=== PATIENT | male | born 1970 ===

== ENCOUNTER 2018-01-15 21:40 | Observation (INO) | payer SELFPAY ==
[2018-01-15 22:57] LABS: BASO # 0.1 K/uL (0.0-0.2); BASO % 0.9 % (0.0-2.0); EOS % 0.7 % (0.0-4.0); HEMOGLOBIN 15.1 g/dL (12.0-18.0); LYMPH # 1.3 K/uL (1.0-4.3); LYMPH % 21.4 % (20.0-40.0); MEAN CELL VOLUME 86.5 fL (80.0-94.0); MEAN CORPUSCULAR HEMOGLOBIN 30.3 pg (27.0-31.0); MEAN PLATELET VOLUME 6.1 fL (7.2-11.7); MONO # 0.3 K/uL (0.0-0.8); MONO % 5.3 % (0.0-10.0); NEUT # 4.4 K/uL (1.8-7.0); NEUT % 71.7 % (50.0-75.0); RBC 4.98 Mil/uL (4.40-5.90); RED CELL DISTRIBUTION WIDTH 14.6 % (11.5-14.5); WHITE BLOOD COUNT 6.2 K/uL (4.8-10.8)
[2018-01-15 23:04] LABS: URINE AMORPHOUS SEDIMENT RARE /ul (<OCC); URINE BILIRUBIN NEGATIVE (NEGATIVE); URINE BLOOD NEGATIVE (NEGATIVE); URINE CLARITY Hazy (Clear); URINE COLOR Straw (YELLOW); URINE GLUCOSE (UA) NORMAL (Normal); URINE LEUKOCYTE ESTERASE NEG Leu/uL (Negative); URINE PROTEIN NEGATIVE (NEGATIVE); URINE UROBILINOGEN NORMAL mg/dL (0.2-1.0)
[2018-01-15 23:09] LABS: ALB/GLOB RATIO 1.4 (1.0-2.1); ALBUMIN 4.6 g/dL (3.5-5.0); ALT/SGPT 30 U/L (21-72); AST/SGOT 28 U/L (17-59); BLOOD UREA NITROGEN 11 mg/dL (9-20); CALCIUM 9.4 mg/dl (8.6-10.4); GFR AFRICAN-AMERICAN > 60; GFR NON-AFRICAN AMERICAN > 60
--- NOTE | 2018-01-15 23:42 | C.PDOC ---
History Of Present Illness 47 yo male with htn and high cholesterol c/o intermittent cp with sob with exertion for the last week, that eases at rest. pt sts today he was outside waking and had cp, sob and felt lightheaded. pt also c/o intermittent left arm numbness and posterior headache, no nausea, vomiting or abodminal pain. no cp at this time. Time Seen by Provider: 01/15/18 22:01 Chief Complaint (Nursing): Headache History Per: Patient History/Exam Limitations: no limitations Onset/Duration Of Symptoms: Days (7) Current Symptoms Are (Timing): Still Present Associated Symptoms: denies: Photophobia, Blurred Vision Past Medical History Reviewed: Historical Data, Nursing Documentation, Vital Signs Vital Signs: Last Vital Signs Temp 98.6 F 01/15/18 21:52 Pulse 63 01/16/18 01:34 Resp 14 01/16/18 01:34 BP 127/83 01/16/18 01:34 Pulse Ox 99 01/16/18 04:39 - Medical History PMH: HTN, Hypercholesterolemia Surgical History: Appendectomy Family History: States: Unknown Family Hx - Social History Hx Tobacco Use: No Hx Alcohol Use: No Hx Substance Use: No Review Of Systems Constitutional: Negative for: Fever, Chills Cardiovascular: Positive for: Chest Pain, Light Headedness. Negative for: Palpitations Respiratory: Positive for: Shortness of Breath, SOB with Excertion. Negative for: Cough Gastrointestinal: Negative for: Nausea, Abdominal Pain Musculoskeletal: Negative for: Neck Pain Skin: Negative for: Rash Neurological: Positive for: Numbness (intermittent left arm), Headache. Negative for: Weakness, Altered Mental Status, Dizziness Physical Exam - Physical Exam Appears: Non-toxic, No Acute Distress Skin: Warm, Dry Head: Atraumatic, Normacephalic Eye(s): bilateral: Normal Inspection, PERRL, EOMI Nose: No Discharge Oral Mucosa: Moist Tongue: Normal Appearing Lips: Normal Appearing Neck: Normal ROM, No Midline Cervical Tenderness, No Paracervical Tenderness, Supple Chest: No Deformity, No Tenderness Cardiovascular: Rhythm Regular, No Murmur Respiratory: No Decreased Breath Sounds, No Rales, No Rhonchi, No Wheezing Gastrointestinal/Abdominal: Soft, No Tenderness, No Guarding, No Rebound Extremity: Normal ROM, No Pedal Edema, No Calf Tenderness Pulses: Left Dorsalis Pedis: Normal, Right Dorsalis Pedis: Normal Neurological/Psych: Oriented x3, Normal Speech, Normal Cognition, Normal Motor, Normal Sensation ED Course And Treatment - Laboratory Results Result Diagrams: 01/15/18 22:53 01/15/18 22:53 ECG: Interpreted By Me, Viewed By Me ECG Rhythm: Sinus Rhythm Interpretation Of ECG: nsr [address]-t changes O2 Sat by Pulse Oximetry: 99 (ON RA) Pulse Ox Interpretation: Normal - CT Scan/US CT head Other Rad Studies (CT/US): Read By Radiologist, Radiology Report Reviewed CT/US Interpretation: EXAM: CT Head Without Intravenous Contrast. CLINICAL HISTORY: 47 years old, male; Pain; Headache; Additional info: Intermittent left arm numbness and headache x. 1 we. TECHNIQUE: Axial computed tomography images of the head/brain without intravenous contrast. All CT scans at. this facility use at least one of these dose optimization techniques: automated exposure control; mA. and/or kV adjustment per patient size (includes targeted exams where dose is matched to clinical. indication); or iterative reconstruction. COMPARISON: No relevant prior studies available. FINDINGS: Brain: Left inferior basal ganglia hypodensity secondary to prominent perivascular space versus. chronic lacunar infarct. No hemorrhage. No significant white matter disease. Ventricles: Unremarkable. No ventriculomegaly. Bones/joints: Unremarkable. No acute fracture. Soft tissues : Unremarkable. Sinuses: Unremarkable as visualized. No acute sinusitis. Mastoid air cells: Unremarkable as visualized. No mastoid effusion. IMPRESSION : No acute findings. Thank you for allowing us to participate in the care of your patient. Dictated and Authenticated by: Swathi Fishman MD. 2017 11:40 PM Eastern Time ([place] & [place]) Medical Decision Making Medical Decision Making: pt with several risk factors for cad; discussed with Dr Alegre, pt to be placed on his service tele obs Disposition Discussed With .: Jose M Alegre Doctor Will See Patient In The: Hospital - Disposition Disposition: HOSPITALIZED Disposition Time: 00:29 Condition: GOOD - Clinical Impression Clinical Impression: Chest pain
--- NOTE | 2018-01-16 00:32 | CP.PCM.HP ---
<PetraDebra Anabell - Last Filed: 01/16/18 01:27> History of Present Illness - History of Present Illness History of Present Illness: CC: chest pain HPI: Patient is a 47 year old male with PMHx of HTN and HLD who comes in today for chest pain and left arm falling asleep. Patient is visiting from [facility] and is returning to [facility] on Tuesday. Patient explains that for the past week he has had multiple episodes of left sided mid axillary pain that last for a few minutes and resolves on their own. The pain is moderate. Patient says that he also notices his left arm sometimes falls asleep (at night or during the day) and the sensation resolves when he massages his arm. Patient also admits to headache in the back of the head that has happened a few times in the past week. Today patient was walking around all day in the sun and became lightheaded and slightly short of breath. Patient splashed cold water on his face and then went home. Patient felt anxious and decided to come to the ER. Patient says he does not do much exercise, but does do a lot of walking. Patient can walk very far with no problems. Of note patient is asking to be sent home with anxiety medication because he gets nervous on planes. Patient takes an herbal supplement sometimes in [facility] for anxiety (Valeriana). Currently patient has no symptoms. Patient denies any headache, chest pain, shortness of breath, abdominal pain, nausea, vomiting, constipation, or diarrhea. PMHx:HTN, HLD All: NKDA Surg: Appendectomy as a teenager Social: denies tobacco or drugs, used to drink socially but stopped 5 years ago , works at a [employer] Famhx: father: open heart surgery at 56, mom: DMII Home meds: Losartan 50mg po daily, Amlodipine 2.5mg po daily Present on Admission - Present on Admission Any Indicators Present on Admission: No History of DVT/PE: No History of Uncontrolled Diabetes: No Urinary Catheter: No Decubitus Ulcer Present: No Review of Systems - Constitutional Constitutional: absent: Fever, Weakness - EENT Eyes: absent: Blurred Vision - Cardiovascular Cardiovascular: Chest Pain, Dyspnea, Dyspnea on Exertion. absent: Palpitations - Respiratory Respiratory: absent: Cough, Wheezing - Gastrointestinal Gastrointestinal: absent: Abdominal Pain, Constipation, Diarrhea, Nausea, Vomiting - Genitourinary Genitourinary: absent: Change in Urinary Stream, Difficulty Urinating - Musculoskeletal Musculoskeletal: Numbness, Tingling. absent: Stiffness - Integumentary Integumentary: absent: Rash - Neurological Neurological: Paresthesias - Hematologic/Lymphatic Hematologic: absent: Easy Bleeding, Easy Bruising Past Patient History - Past Social History Smoking Status: Never Smoked - CARDIAC Hx Hypertension: Yes - PSYCHIATRIC Hx Substance Use: No - SURGICAL HISTORY Hx Appendectomy: Yes Meds Allergies/Adverse Reactions: Allergies Allergy/AdvReac Type Severity Reaction Status Date / Time No Known Allergies Allergy Unverified 01/15/18 21:55 Physical Exam - Constitutional Appears: Non-toxic, No Acute Distress - Head Exam Head Exam: ATRAUMATIC, NORMAL INSPECTION, NORMOCEPHALIC - Eye Exam Eye Exam: EOMI, Normal appearance - ENT Exam ENT Exam: Mucous Membranes Moist - Respiratory Exam Respiratory Exam: Clear to Auscultation Bilateral, NORMAL BREATHING PATTERN. absent: Rales, Rhonchi, Wheezes, Respiratory Distress - Cardiovascular Exam Cardiovascular Exam: REGULAR RHYTHM, RRR, +S1, +S2 Additional comments: mild left sided rib tenderness - GI/Abdominal Exam GI & Abdominal Exam: Normal Bowel Sounds, Soft. absent: Tenderness - Extremities Exam Extremities exam: Positive for: normal inspection. Negative for: pedal edema, tenderness - Back Exam Back exam: NORMAL INSPECTION - Neurological Exam Neurological exam: Alert, Oriented x3 - Psychiatric Exam Psychiatric exam: Normal Affect, Normal Mood - Skin Skin Exam: Intact, Normal Color, Warm Results - Vital Signs Recent Vital Signs: Last Vital Signs Temp 98.6 F 01/15/18 21:52 Pulse 86 01/15/18 21:52 Resp 14 01/15/18 21:52 BP 130/80 01/15/18 21:52 Pulse Ox 99 01/16/18 00:28 - Labs Result Diagrams: 01/15/18 22:53 01/15/18 22:53 Labs: Laboratory Results - last 24 hr 01/15/18 01/15/18 01/15/18 22:50 22:53 22:53 WBC 6.2 RBC 4.98 Hgb 15.1 Hct 43.1 MCV 86.5 MCH 30.3 MCHC 35.0 RDW 14.6 H Plt Count 294 MPV 6.1 L Neut % (Auto) 71.7 Lymph % (Auto) 21.4 [place] % (Auto) 5.3 Eos % (Auto) 0.7 Baso % (Auto) 0.9 Neut # (Auto) 4.4 Lymph # (Auto) 1.3 [place] # (Auto) 0.3 Eos # (Auto) 0.0 Baso # (Auto) 0.1 Sodium 142 Potassium 3.5 L Chloride 103 Carbon Dioxide 25 Anion Gap 17 BUN 11 Creatinine 1.0 Est GFR ( Amer) > 60 Est GFR (Non-Af Amer) > 60 Random Glucose 130 H Calcium 9.4 Total Bilirubin 0.7 AST 28 ALT 30 Alkaline Phosphatase 60 Troponin I < 0.0120 Total Protein 8.0 Albumin 4.6 Globulin 3.4 Albumin/Globulin Ratio 1.4 Urine Color Straw Urine Clarity Hazy Urine pH 8.0 Ur Specific Watts 1.006 Urine Protein Negative Urine Glucose (UA) Normal Urine Ketones Negative Urine Blood Negative Urine Nitrate Negative Urine Bilirubin Negative Urine Urobilinogen Normal Ur Leukocyte Esterase Neg Urine WBC (Auto) 1 Urine RBC (Auto) < 1 Amorphous Sediment Rare H Assessment & Plan - Assessment and Plan (Free Text) Assessment: Chest Pain r/o ACS admitted to [facility] I (-) repeat [place] x 2 EKG: NSR at [address] head: Left inferior basal ganglia hypodensity secondary to prominent perivascular space versus chronic lacunar infarct. No hemorrhage. No significant white matter disease. Ventricles: Unremarkable. No ventriculomegaly. Bones/joints: Unremarkable. No acute fracture. Soft tissues : Unremarkable. Sinuses: Unremarkable as visualized. No acute sinusitis. Mastoid air cells: Unremarkable as visualized. No mastoid effusion. IMPRESSION : No acute findings. HTN stable continue home meds: Losartan 50mg po daily, Amlodipine 2.5mg po daily Hypokalemia K+ 3.5, 20meq KDUR given Prophylaxis SCDs pepcid 20mg po daily Tylenol 650mg po q6h prn <Jose M Alegre P - Last Filed: 01/16/18 07:04> Results - Vital Signs Recent Vital Signs: Last Vital Signs Temp 98.1 F 01/16/18 06:58 Pulse 60 01/16/18 06:58 Resp 18 01/16/18 06:58 BP 108/69 01/16/18 06:58 Pulse Ox 100 01/16/18 06:58 - Labs Result Diagrams: 01/16/18 05:16 01/16/18 05:16 Labs: Laboratory Results - last 24 hr 01/15/18 01/15/18 01/15/18 22:50 22:53 22:53 WBC 6.2 RBC 4.98 Hgb 15.1 Hct 43.1 MCV 86.5 MCH 30.3 MCHC 35.0 RDW 14.6 H Plt Count 294 MPV 6.1 L Neut % (Auto) 71.7 Lymph % (Auto) 21.4 [place] % (Auto) 5.3 Eos % (Auto) 0.7 Baso % (Auto) 0.9 Neut # (Auto) 4.4 Lymph # (Auto) 1.3 [place] # (Auto) 0.3 Eos # (Auto) 0.0 Baso # (Auto) 0.1 Sodium 142 Potassium 3.5 L Chloride 103 Carbon Dioxide 25 Anion Gap 17 BUN 11 Creatinine 1.0 Est GFR ( Amer) > 60 Est GFR (Non-Af Amer) > 60 Random Glucose 130 H Calcium 9.4 Phosphorus Magnesium Total Bilirubin 0.7 AST 28 ALT 30 Alkaline Phosphatase 60 Total Creatine Kinase CK-MB (Mass) Troponin I < 0.0120 Total Protein 8.0 Albumin 4.6 Globulin 3.4 Albumin/Globulin Ratio 1.4 Urine Color Straw Urine Clarity Hazy Urine pH 8.0 Ur Specific Watts 1.006 Urine Protein Negative Urine Glucose (UA) Normal Urine Ketones Negative Urine Blood Negative Urine Nitrate Negative Urine Bilirubin Negative Urine Urobilinogen Normal Ur Leukocyte Esterase Neg Urine WBC (Auto) 1 Urine RBC (Auto) < 1 Amorphous Sediment Rare H 01/16/18 01/16/18 01/16/18 05:16 05:16 05:16 WBC 7.3 RBC 5.05 Hgb 15.1 Hct 43.8 MCV 86.7 MCH 29.9 MCHC 34.5 RDW 14.2 Plt Count 269 MPV 6.0 L Neut % (Auto) 56.9 Lymph % (Auto) 34.6 [place] % (Auto) 7.1 Eos % (Auto) 0.9 Baso % (Auto) 0.5 Neut # (Auto) 4.2 Lymph # (Auto) 2.5 [place] # (Auto) 0.5 Eos # (Auto) 0.1 Baso # (Auto) 0.0 Sodium 142 Potassium 4.0 Chloride 106 Carbon Dioxide 24 Anion Gap 16 BUN 10 Creatinine 1.0 Est GFR ( Amer) > 60 Est GFR (Non-Af Amer) > 60 Random Glucose 95 Calcium 8.8 Phosphorus 4.9 H Magnesium 2.4 H Total Bilirubin 0.8 AST 22 ALT 31 Alkaline Phosphatase 60 Total Creatine Kinase 178 H CK-MB (Mass) 0.34 Troponin I < 0.0120 Total Protein 7.2 Albumin 4.3 Globulin 2.9 Albumin/Globulin Ratio 1.5 Urine Color Urine Clarity Urine pH Ur Specific Watts Urine Protein Urine Glucose (UA) Urine Ketones Urine Blood Urine Nitrate Urine Bilirubin Urine Urobilinogen Ur Leukocyte Esterase Urine WBC (Auto) Urine RBC (Auto) Amorphous Sediment Attending/Attestation - Attestation I have personally seen and examined this patient.: Yes I have fully participated in the care of the patient.: Yes I have reviewed all pertinent clinical information: Yes Notes (Text): Assessment Atypical vague symptoms of 1 min chest pain, intermittent left arm numbness, and episode of weakness yesterday, all symptoms not related with each other, independent in chronology Patient seeking also some anti anxiety medication for his coming flight travel in 2 days Plan Serial enzymes, if negative dc planning.
[2018-01-16] MEDS ORDERED: Potassium Chloride 20 mEq ER Tab PO ONE ×2 (01:35→01:42)
[2018-01-16 05:19] LABS: BASO % 0.5 % (0.0-2.0); EOS # 0.1 K/uL (0.0-0.7); EOS % 0.9 % (0.0-4.0); HEMOGLOBIN 15.1 g/dL (12.0-18.0); LYMPH # 2.5 K/uL (1.0-4.3); LYMPH % 34.6 % (20.0-40.0); MEAN CELL VOLUME 86.7 fL (80.0-94.0); MEAN CORPUSCULAR HEMOGLOBIN 29.9 pg (27.0-31.0); MEAN CORPUSCULAR HGB CONC 34.5 g/dL (33.0-37.0); MONO # 0.5 K/uL (0.0-0.8); MONO % 7.1 % (0.0-10.0); NEUT # 4.2 K/uL (1.8-7.0); NEUT % 56.9 % (50.0-75.0); NRBC % 0.2 % (0.0-2.0); RBC 5.05 Mil/uL (4.40-5.90); RED CELL DISTRIBUTION WIDTH 14.2 % (11.5-14.5); WHITE BLOOD COUNT 7.3 K/uL (4.8-10.8)
[2018-01-16 05:52] LABS: CK-MB 0.34 ng/mL (0.0-3.38)
[2018-01-16 06:38] LABS: ALB/GLOB RATIO 1.5 (1.0-2.1); ALBUMIN 4.3 g/dL (3.5-5.0); ALT/SGPT 31 U/L (21-72); AST/SGOT 22 U/L (17-59); BLOOD UREA NITROGEN 10 mg/dL (9-20); CALCIUM 8.8 mg/dl (8.6-10.4); GFR AFRICAN-AMERICAN > 60; GFR NON-AFRICAN AMERICAN > 60
--- NOTE | 2018-01-16 08:48 | CT ---
Date of service: 01/15/2018 PROCEDURE: CT HEAD WITHOUT CONTRAST. HISTORY: intermittent left arm numbness and headache COMPARISON: None available. TECHNIQUE: Axial computed tomography images were obtained through the head/brain without intravenous contrast. Radiation dose: Total exam DLP = 819 mGy-cm. This CT exam was performed using one or more of the following dose reduction techniques: Automated exposure control, adjustment of the mA and/or kV according to patient size, and/or use of iterative reconstruction technique. FINDINGS: HEMORRHAGE: No intracranial hemorrhage. BRAIN: Left inferior basal ganglia hypodensity secondary to prominent perivascular space versus chronic lacunar infarct.Scattered focal lucencies in the subcortical and periventricular white matter suggestive for chronic microvascular ischemic change. VENTRICLES: Unremarkable. No hydrocephalus. CALVARIUM: Unremarkable. PARANASAL SINUSES: Unremarkable as visualized. No significant inflammatory changes. MASTOID AIR CELLS: Unremarkable as visualized. No inflammatory changes. OTHER FINDINGS: None. IMPRESSION: Left inferior basal ganglia hypodensity secondary to prominent perivascular space versus chronic lacunar infarct. Chronic microvascular ischemic changes. If focal neurologic deficit persists, consider correlation with MRI. These findings were preliminarily reported at 11:40 p.m. on 01/15/[address] Swathi Fishman from [facility].
--- NOTE | 2018-01-16 11:26 | RAD ---
Date of service: 01/15/2018 HISTORY: Chest pain. COMPARISON: No prior. TECHNIQUE: Chest PA and lateral FINDINGS: LUNGS: No active pulmonary disease. PLEURA: No significant pleural effusion identified. No pneumothorax apparent. CARDIOVASCULAR: No radiographic findings to suggest acute or significant cardiovascular disease. OSSEOUS STRUCTURES: No significant abnormalities. VISUALIZED UPPER ABDOMEN: Normal. OTHER FINDINGS: None. IMPRESSION: No active disease.
[2018-01-16 11:46] VITALS: BP 133/85; RESP 18; TEMP 97.7; O2SAT 98
[2018-01-16 12:19] LABS: CK-MB 0.28 ng/mL (0.0-3.38)
--- NOTE | 2018-01-16 13:19 | CARD ---
APPROVED REPORT Date of service: 01/16/2018 EKG Measurement Heart [id number] <Conclusion> Normal sinus rhythm Nonspecific T wave abnormality Abnormal ECG
[2018-01-16 14:06] VITALS: PULSE 98
--- NOTE | 2018-01-16 15:21 | CP.PCM.DIS ---
<Adrien Medelophe - Last Filed: 01/16/18 15:17> Provider - Provider Date of Admission: 01/16/18 00:30 Attending physician: Lacey Ernst DO Time Spent in preparation of Discharge (in minutes): 45 Diagnosis - Discharge Diagnosis (1) Anxiety Status: Chronic (2) Chest pain Status: Resolved Hospital Course - Lab Results Lab Results: Most Recent Lab Values WBC 7.3 K/uL (4.8-10.8) 01/16/18 05:16 RBC 5.05 Mil/uL (4.40-5.90) 01/16/18 05:16 Hgb 15.1 g/dL (12.0-18.0) 01/16/18 05:16 Hct 43.8 % (35.0-51.0) 01/16/18 05:16 MCV 86.7 fL (80.0-94.0) 01/16/18 05:16 MCH 29.9 pg (27.0-31.0) 01/16/18 05:16 MCHC 34.5 g/dL (33.0-37.0) 01/16/18 05:16 RDW 14.2 % (11.5-14.5) 01/16/18 05:16 Plt Count 269 K/uL (130-400) 01/16/18 05:16 MPV 6.0 fL (7.2-11.7) L 01/16/18 05:16 Neut % (Auto) 56.9 % (50.0-75.0) 01/16/18 05:16 Lymph % (Auto) 34.6 % (20.0-40.0) 01/16/18 05:16 [place] % (Auto) 7.1 % (0.0-10.0) 01/16/18 05:16 Eos % (Auto) 0.9 % (0.0-4.0) 01/16/18 05:16 Baso % (Auto) 0.5 % (0.0-2.0) 01/16/18 05:16 Neut # (Auto) 4.2 K/uL (1.8-7.0) 01/16/18 05:16 Lymph # (Auto) 2.5 K/uL (1.0-4.3) 01/16/18 05:16 [place] # (Auto) 0.5 K/uL (0.0-0.8) 01/16/18 05:16 Eos # (Auto) 0.1 K/uL (0.0-0.7) 01/16/18 05:16 Baso # (Auto) 0.0 K/uL (0.0-0.2) 01/16/18 05:16 Sodium 142 mmol/L (132-148) 01/16/18 05:16 Potassium 4.0 mmol/L (3.6-5.2) 01/16/18 05:16 Chloride 106 mmol/L (98-107) 01/16/18 05:16 Carbon Dioxide 24 mmol/L (22-30) 01/16/18 05:16 Anion Gap 16 (10-20) 01/16/18 05:16 BUN 10 mg/dL (9-20) 01/16/18 05:16 Creatinine 1.0 mg/dL (0.8-1.5) 01/16/18 05:16 Est GFR ( Amer) > 60 01/16/18 05:16 Est GFR (Non-Af Amer) > 60 01/16/18 05:16 Random Glucose 95 mg/dL (75-110) 01/16/18 05:16 Calcium 8.8 mg/dl (8.6-10.4) 01/16/18 05:16 Phosphorus 4.9 mg/dL (2.5-4.5) H 01/16/18 05:16 Magnesium 2.4 mg/dL (1.6-2.3) H 01/16/18 05:16 Total Bilirubin 0.8 mg/dL (0.2-1.3) 01/16/18 05:16 AST 22 U/L (17-59) 01/16/18 05:16 ALT 31 U/L (21-72) 01/16/18 05:16 Alkaline Phosphatase 60 U/L (38-126) 01/16/18 05:16 Total Creatine Kinase 177 U/L (55-170) H 01/16/18 11:29 CK-MB (Mass) 0.28 ng/mL (0.0-3.38) 01/16/18 11:29 Troponin I < 0.0120 ng/mL (0.00-0.120) 01/16/18 11:29 Total Protein 7.2 g/dL (6.3-8.3) 01/16/18 05:16 Albumin 4.3 g/dL (3.5-5.0) 01/16/18 05:16 Globulin 2.9 gm/dL (2.2-3.9) 01/16/18 05:16 Albumin/Globulin Ratio 1.5 (1.0-2.1) 01/16/18 05:16 Urine Color Straw (YELLOW) 01/15/18 22:50 Urine Clarity Hazy (Clear) 01/15/18 22:50 Urine pH 8.0 (5.0-8.0) 01/15/18 22:50 Ur Specific [place] 1.006 (1.003-1.030) 01/15/18 22:50 Urine Protein Negative mg/dL (NEGATIVE) 01/15/18 22:50 Urine Glucose (UA) Normal mg/dL (Normal) 01/15/18 22:50 Urine Ketones Negative mg/dL (NEGATIVE) 01/15/18 22:50 Urine Blood Negative (NEGATIVE) 01/15/18 22:50 Urine Nitrate Negative (NEGATIVE) 01/15/18 22:50 Urine Bilirubin Negative (NEGATIVE) 01/15/18 22:50 Urine Urobilinogen Normal mg/dL (0.2-1.0) 01/15/18 22:50 Ur Leukocyte Esterase Neg [place]/uL (Negative) 01/15/18 22:50 Urine WBC (Auto) 1 /hpf (0-5) 01/15/18 22:50 Urine RBC (Auto) < 1 /hpf (0-3) 01/15/18 22:50 Amorphous Sediment Rare /ul (<OCC) H 01/15/18 22:50 - Hospital Course Hospital Course: HPI Patient is a 47 year old male with PMHx of HTN and HLD who comes in today for chest pain and left arm falling asleep. Patient is visiting from [facility] and is returning to [facility] on Tuesday. Patient explains that for the past week he has had multiple episodes of left sided mid axillary pain that last for a few minutes and resolves on their own. The pain is moderate. Patient says that he also notices his left arm sometimes falls asleep (at night or during the day) and the sensation resolves when he massages his arm. Patient also admits to headache in the back of the head that has happened a few times in the past week. Today patient was walking around all day in the sun and became lightheaded and slightly short of breath. Patient splashed cold water on his face and then went home. Patient felt anxious and decided to come to the ER. Patient says he does not do much exercise, but does do a lot of walking. Patient can walk very far with no problems. Of note patient is asking to be sent home with anxiety medication because he gets nervous on planes. Patient takes an herbal supplement sometimes in [facility] for anxiety (Valeriana). Currently patient has no symptoms. Patient denies any headache, chest pain, shortness of breath, abdominal pain, nausea, vomiting, constipation, or diarrhea. PMHx:HTN, HLD All: NKDA Surg: Appendectomy as a teenager Social: denies tobacco or drugs, used to drink socially but stopped 5 years ago , works at a [employer] Famhx: father: open heart surgery at 56, mom: DMII Home meds: Losartan 50mg po daily, Amlodipine 2.5mg po daily Hospital course: Pt admitted for chest pain and Left arm paresthesia. EKG and troponins negative for pathology x3. CXR neg. Psychiatry consulted. Pt was given 0.5mg of Xanax as trial anxiolytic. Pt reports full resolution of anxiety. Pt discharged with 3 pills PRN. Diagnostics: CXR: neg EKG x3 NSR Head CT: L basal ganglia lacunar infarct possible instructions: 1. Xanax 0.5mg take one pill as needed for anxiety symptoms 2. F/u with PMD for rosacea treatment Discharge Exam - Head Exam Head Exam: ATRAUMATIC, NORMAL INSPECTION, NORMOCEPHALIC - Eye Exam Eye Exam: EOMI, Normal appearance. absent: Nystagmus Pupil Exam: NORMAL ACCOMODATION - ENT Exam ENT Exam: Mucous Membranes Moist - Respiratory Exam Respiratory Exam: Clear to PA & Lateral, NORMAL BREATHING PATTERN - Cardiovascular Exam Cardiovascular Exam: RRR, +S1, +S2. absent: Systolic Murmur - Extremities Exam Extremities exam: full ROM, normal inspection - Back Exam Back exam: NORMAL INSPECTION - Neurological Exam Neurological exam: Alert, CN II-XII Intact, Normal Gait, Oriented x3, Reflexes Normal Additional comments: rhomberg neg heel woody drag normal bilaterally neg blink reflex tap neg arguelles's - Psychiatric Exam Psychiatric exam: Normal Affect, Normal Mood - Skin Skin Exam: Dry, Intact, Normal Color, Warm Discharge Plan - Follow Up Plan Condition: GOOD Disposition: HOME/ ROUTINE Instructions: Heart Healthy Diet, Chest Pain (DC), Anxiety (DC) Additional Instructions: Pt instructed to take Xanax 0.5mg for anxiety one pill as needed once. <Lacey Ernst V - Last Filed: 01/17/18 01:33> Provider - Provider Date of Admission: 01/16/18 00:30 Attending physician: Lacey Ernst, [facility] Course - Lab Results Lab Results: Most Recent Lab Values WBC 7.3 K/uL (4.8-10.8) 01/16/18 05:16 RBC 5.05 Mil/uL (4.40-5.90) 01/16/18 05:16 Hgb 15.1 g/dL (12.0-18.0) 01/16/18 05:16 Hct 43.8 % (35.0-51.0) 01/16/18 05:16 MCV 86.7 fL (80.0-94.0) 01/16/18 05:16 MCH 29.9 pg (27.0-31.0) 01/16/18 05:16 MCHC 34.5 g/dL (33.0-37.0) 01/16/18 05:16 RDW 14.2 % (11.5-14.5) 01/16/18 05:16 Plt Count 269 K/uL (130-400) 01/16/18 05:16 MPV 6.0 fL (7.2-11.7) L 01/16/18 05:16 Neut % (Auto) 56.9 % (50.0-75.0) 01/16/18 05:16 Lymph % (Auto) 34.6 % (20.0-40.0) 01/16/18 05:16 [place] % (Auto) 7.1 % (0.0-10.0) 01/16/18 05:16 Eos % (Auto) 0.9 % (0.0-4.0) 01/16/18 05:16 Baso % (Auto) 0.5 % (0.0-2.0) 01/16/18 05:16 Neut # (Auto) 4.2 K/uL (1.8-7.0) 01/16/18 05:16 Lymph # (Auto) 2.5 K/uL (1.0-4.3) 01/16/18 05:16 [place] # (Auto) 0.5 K/uL (0.0-0.8) 01/16/18 05:16 Eos # (Auto) 0.1 K/uL (0.0-0.7) 01/16/18 05:16 Baso # (Auto) 0.0 K/uL (0.0-0.2) 01/16/18 05:16 Sodium 142 mmol/L (132-148) 01/16/18 05:16 Potassium 4.0 mmol/L (3.6-5.2) 01/16/18 05:16 Chloride 106 mmol/L (98-107) 01/16/18 05:16 Carbon Dioxide 24 mmol/L (22-30) 01/16/18 05:16 Anion Gap 16 (10-20) 01/16/18 05:16 BUN 10 mg/dL (9-20) 01/16/18 05:16 Creatinine 1.0 mg/dL (0.8-1.5) 01/16/18 05:16 Est GFR ( Amer) > 60 01/16/18 05:16 Est GFR (Non-Af Amer) > 60 01/16/18 05:16 Random Glucose 95 mg/dL (75-110) 01/16/18 05:16 Calcium 8.8 mg/dl (8.6-10.4) 01/16/18 05:16 Phosphorus 4.9 mg/dL (2.5-4.5) H 01/16/18 05:16 Magnesium 2.4 mg/dL (1.6-2.3) H 01/16/18 05:16 Total Bilirubin 0.8 mg/dL (0.2-1.3) 01/16/18 05:16 AST 22 U/L (17-59) 01/16/18 05:16 ALT 31 U/L (21-72) 01/16/18 05:16 Alkaline Phosphatase 60 U/L (38-126) 01/16/18 05:16 Total Creatine Kinase 177 U/L (55-170) H 01/16/18 11:29 CK-MB (Mass) 0.28 ng/mL (0.0-3.38) 01/16/18 11:29 Troponin I < 0.0120 ng/mL (0.00-0.120) 01/16/18 11:29 Total Protein 7.2 g/dL (6.3-8.3) 01/16/18 05:16 Albumin 4.3 g/dL (3.5-5.0) 01/16/18 05:16 Globulin 2.9 gm/dL (2.2-3.9) 01/16/18 05:16 Albumin/Globulin Ratio 1.5 (1.0-2.1) 01/16/18 05:16 Urine Color Straw (YELLOW) 01/15/18 22:50 Urine Clarity Hazy (Clear) 01/15/18 22:50 Urine pH 8.0 (5.0-8.0) 01/15/18 22:50 Ur Specific [place] 1.006 (1.003-1.030) 01/15/18 22:50 Urine Protein Negative mg/dL (NEGATIVE) 01/15/18 22:50 Urine Glucose (UA) Normal mg/dL (Normal) 01/15/18 22:50 Urine Ketones Negative mg/dL (NEGATIVE) 01/15/18 22:50 Urine Blood Negative (NEGATIVE) 01/15/18 22:50 Urine Nitrate Negative (NEGATIVE) 01/15/18 22:50 Urine Bilirubin Negative (NEGATIVE) 01/15/18 22:50 Urine Urobilinogen Normal mg/dL (0.2-1.0) 01/15/18 22:50 Ur Leukocyte Esterase Neg [place]/uL (Negative) 01/15/18 22:50 Urine WBC (Auto) 1 /hpf (0-5) 01/15/18 22:50 Urine RBC (Auto) < 1 /hpf (0-3) 01/15/18 22:50 Amorphous Sediment Rare /ul (<OCC) H 01/15/18 22:50 Attending/Attestation - Attestation I have personally seen and examined this patient.: Yes I have fully participated in the care of the patient.: Yes I have reviewed all pertinent clinical information, including history, physical exam and plan: Yes Notes (Text): This is late computer entry for 01/16/18. patient seen, examined, and case discussed with medical lab director. Patient seen at bedside on . No headache, Neurologically intact. No left arm numbness, strength upper/lower intract. cranial nervies intact. breathing well. gag intact, negative Babinski b/l No chest pain/no palpitations. patient reports he does have anxiety prior to flying which he reports he is flying back out to his [place] this upcoming [place]. Reviewed cardiac enzymes are negative. EKGS: NSR X2. Blood pressure controlled Electrolytes were repleted. Patient given dose of Xanax 0.5mg PO once, which relieved anxiety following cardiac enzymes/ekg were within normal. Patient given limited prescription of 3 pills of Xanax 0.5mg PO once as needed for his flight this Tuesday, he understands to not drink with medication, nor operate heavy machinery. I did refer for him to see his PMD in [facility] to evaluate rosacea and determine treatment to ensure continuity care and if rash improves with treatment or not. No other medications provided upon discharge. Patient medically stable for discharge.
--- NOTE | 2018-01-16 23:18 | CARD ---
APPROVED REPORT Date of service: 01/15/2018 EKG Measurement Heart [id number] <Conclusion> Normal sinus rhythm Normal ECG
[2018-01-18] MEDS ORDERED: Pneumococcal 23-Valent Vaccine IM ONE (10:00)
== END 2018-01-16 16:32 | disposition home or self-care (01) ==
LOC: C.ER 21:40 → C.9E 01-16 00:30 → C.6T 01-16 09:37
PROVIDERS: ADMIT Hospitalist; ATTEND Hospitalist
DX: R07.9 Chest pain, unspecified (principal); F41.9 Anxiety disorder, unspecified; E78.00 Pure hypercholesterolemia, unspecified; E87.6 Hypokalemia; I10 Essential (primary) hypertension; Z79.899 Other long term (current) drug therapy; Z83.3 Family history of diabetes mellitus; E78.5 Hyperlipidemia, unspecified; R51 Headache; R42 Dizziness and giddiness; R20.2 Paresthesia of skin
CPT/HCPCS: 70450; 71046; 80053; 81001; 83735; 84100; 84484; 85025; 93005; 99285; G0378